=== PATIENT | female | born 1970 | race Two or more races ===

== ENCOUNTER 2020-08-28 08:39 | Emergency (ER) | payer OTHER ==
[2020-08-28] MEDS ORDERED: KETOROLAC 60 MG/2 ML VIAL IM STA (09:25)
[2020-08-28] MEDS ORDERED: methocarbamoL 500 MG TABLET PO STA (09:25)
--- NOTE | 2020-08-28 09:48 | ED Physician Documentation ---
History of Present Illness - Stated complaint Stated Complaint: GLF/BACK PX - Chief complaint Chief Complaint: General - History obtained from History obtained from: Patient, Family - History of Present Illness Timing: Yesterday Pain level max: 8 Pain level now: 8 - Additonal information Additional information: 50 year old female s/p fall in the shower yesterday. States increasing pain in her back today. No numbness, no tingling, no loss of bowel or bladder control. worse with movement and better with rest. Pain worsening over the past 24 hours. Took tylenol without relief. No history of cancer. No IV drug use. No fevers. Review of Systems Ten Systems: 10 systems reviewed and negative Constitutional: denies: Fever, Chills Ears: denies: Ear pain Nose: denies: Rhinorrhea / runny nose, Congestion Respiratory: denies: Cough GI: denies: Abdominal Pain, Nausea, Vomiting, Diarrhea : denies: Dysuria, Frequency, Hesitancy, Unable to Void, Incontinent Skin: denies: Rash Musculoskeletal: reports: Back pain (lower L back). 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 - Present Medications Home Medications: Ambulatory Orders Medication Instructions Recorded Confirmed HYDROcod/ACETAM 5/325 [[place] 5/325] 1 - 2 ea PO Q6H PRN #14 tablet 08/28/20 Ibuprofen [Motrin] 800 mg PO Q8H PRN #30 tablet 08/28/20 methocarbamoL [Robaxin] 500 mg PO Q6H PRN #20 tablet 08/28/20 - Allergies Allergies/Adverse Reactions: Allergies Allergy/AdvReac Type Severity Reaction Status Date / Time No Known Drug Allergies Allergy Verified 08/28/20 08:56 - Social History Does the pt smoke?: No Smoking Status: Never smoker Does the pt drink ETOH?: No Does the pt have substance abuse?: No PD ED PE NORMAL - Vitals Vital signs reviewed: Yes - General General: Alert and oriented X 3, No acute distress, Well developed/nourished - HEENT HEENT: PERRL, Moist mucous membranes - Neck Neck: Supple, no meningeal sign - Cardiac Cardiac: RRR, Strong equal pulses - Respiratory Respiratory: No respiratory distress, Clear bilaterally - Abdomen Abdomen: Soft, Non tender, Non distended - Back Back: No spinal TTP (no midline TTP. no stepoff or deformity. NVI. paraspinal spasm, L Low lumbar. ) - Derm Derm: Warm and dry - Extremities Extremities: No edema, No calf tenderness / cord - Neuro Neuro: Alert and oriented X 3, bale opener 2-12 intact, No motor deficit, No sensory deficit, Normal speech, Other (Normal bilateral lower extremity patellar and ankle jerk reflexes. Normal great toe extension bilaterally. no saddle anesthesia) - Psych Psych: Normal mood, Normal affect Results - Vitals Vitals: Vital Signs - 24 hr 08/28/20 08/28/20 08:51 12:33 Temperature 36.6 C 36.7 C Heart Rate 64 68 Respiratory 16 14 Rate Blood Pressure 128/67 130/73 O2 Saturation 99 98 Oxygen O2 Source Room air - Rads (name of study) L spine xray Radiology: Prelim report reviewed, EMP read contemporaneously, See rad report (no Acute abnormality) PD MEDICAL DECISION MAKING - ED course Complexity details: reviewed results, re-evaluated patient, considered differential (No cauda equina, no spinal epidural abscess, no fracture, no aortic dissection or evidence of aneursym rupture), d/w patient ED course: 50-year-old female with back pain after a fall yesterday. Appears to have significant spasm. Feels better after Robaxin, Toradol, Dilaudid. Ambulating well. Will place on pain medication and muscle relaxants for home. No loss of bowel or bladder control. No acute findings on x-ray. Patient and family counseled regarding signs and symptoms for which I believe and urgent re- evaluation would be necessary. Patient with good understanding of and agreement to plan and is comfortable going home at this time This document was made in part using voice recognition software. While efforts are made to proofread this document, sound alike and grammatical errors may occur. Departure - Departure Disposition: 01 Home, Self Care Clinical Impression: Back muscle spasm Condition: Good Instructions: ED Spasm Back No Trauma, ED Neck Back Pain General Follow-Up: your,doctor in 1 week [Other] Prescriptions: Ibuprofen [Motrin] 800 mg PO Q8H PRN #30 tablet PRN Reason: PAIN &/OR FEVER HYDROcod/ACETAM 5/325 [[place] 5/325] 1 - 2 ea PO Q6H PRN #14 tablet PRN Reason: Pain methocarbamoL [Robaxin] 500 mg PO Q6H PRN #20 tablet PRN Reason: muscle spasm Comments: Use the medications as needed for pain. Return if you worsen. Continue to gently stretch her back. Heating pads may help as well. Your xrays are normal today. Do not drink alcohol or drive while on narcotic pain medicine. Note that many narcotic pain relievers also contain tylenol/acetaminophen. Please ensure that your total dose of acetaminophen from all sources does not exceed 3 grams (3000mg) per day. You may constipated on this medication, take a stool softener such as "Colace" twice a day while you are on it. Also recommend a hqdo-wea-mhzxdaw laxative such as senna or MiraLAX any day that you do not have a bowel movement. If you received narcotic pain medication in the emergency department, do not drive or operate machinery for the next 24 hours. Discharge Date/Time: 08/28/20 12:45
[2020-08-28] MEDS ORDERED: HYDROmorphone 1 MG/ML CARPUJECT IM STA (10:41)
--- NOTE | 2020-08-28 12:13 | XRAY Report ---
PROCEDURE: Lumbar Spine 2 View INDICATIONS: fall, back pain TECHNIQUE: 2 views of the lumbar spine were acquired. COMPARISON: None. FINDINGS: Bones: 5 [id number] vertebrae are present. There is normal bony alignment. No vertebral body compression fractures. No suspicious bony lesions. Mild degenerative disc disease at L1-L2, L2-L3, L3-L4, L4-L5 and L5-S1. Facet arthropathy at L4-L5 and L5-S1. Soft tissues: Overlying bowel gas pattern is normal. No suspicious soft tissue calcifications. IMPRESSION: No fracture. Degenerative disc and facet disease in lumbar spine. Reviewed by: Arely Thomson MD on 08/28/2020 12:12 PM PDT Approved by: Arely Thomson MD on 08/28/2020 12:12 PM PDT Station ID: [id number]
[2020-08-28 12:34] VITALS: BP 130/73
== END 2020-08-28 12:45 | disposition home or self-care (01) ==
LOC: ED 08:39
DX: M62.830 Muscle spasm of back (principal); W18.2XXA Fall in (into) shower or empty bathtub, initial encounter; Y93.F1 Activity, caregiving, bathing
CPT/HCPCS: 72100; 96372; 99283; 99284; A9270; J1170

== ENCOUNTER 2020-11-19 09:44 | Outpatient (CLI) | payer OTHER ==
--- NOTE | 2020-11-20 15:48 | Mammography Report ---
BILATERAL DIGITAL SCREENING MAMMOGRAM 3D/2D: 11/19/2020 CLINICAL: Routine screening. Comparison is made to exams dated: 07/12/2017 mammogram and 02/11/2014 mammogram - [facility]. There are scattered fibroglandular elements in both breasts. No significant masses, calcifications, or other findings are seen in either breast. There has been no significant interval change. IMPRESSION: NEGATIVE There is no mammographic evidence of malignancy. A 1 year screening mammogram is recommended. This exam was interpreted at Station ID: [id number]. NOTE: For mammograms, a report in lay terms will be sent to the patient. Approximately 15% of breast malignancies will not be visualized mammographically. In the management of a palpable breast mass, a negative mammogram must not discourage biopsy of a clinically suspicious lesion. Electronically Signed By: Alvino Tapia M.D., jr/torrey:11/19/2020 13:28:30 ACR BI-RADS Category 1: Negative 3341F PARENCHYMAL PATTERN: (A) - The breast(s) demonstrate(s) scattered fibroglandular densities. BI-RADS CATEGORY: (1) - 1 RECOMMENDATION: (ANNUAL) - Recommend routine annual screening mammography. [id number] 1 year screening LATERALITY: (B)
== END 2020-11-19 09:45 | disposition home or self-care (01) ==
LOC: DI 09:44
DX: Z12.31 Encounter for screening mammogram for malignant neoplasm of breast (principal)